=== PATIENT | male | born 1950 | race Caucasian/White ===

== ENCOUNTER → 2016-11-10 | Outpatient (CLI) | payer OTHER ==
[~2016-11-10] MED LIST: ALPR-411 PO; ASCO10003 PO; ATOR-22 PO; CHOL1000 PO; COEN1CAP7 PO; CYAN100020 PO; DICL1TAB5 PO; DICY10CA55 PO; IBUP-1050 PO; INTERFERON INJ; LEVO25TA PO; OXYC-57 PO; PRLSR20 PO; PYRI60TA2 PO; SULF800T23 PO; TAMS0.4C38 PO; VENL150C PO
--- NOTE | 2016-11-11 10:26 | DIAGNOSTIC IMAGING REPORT ---
ADDENDUM Addendum: Asymmetric FDG uptake within the right globe and right optic nerve. However, this favors normal physiologic uptake. There is diminished FDG uptake within the left orbit which may be due to post radiation changes. Electronically signed by: Hector Pierre M.D. 11/11/2016 10:36 AM Dictated Date/Time: 11/11/2016 10:26 AM ORIGINAL REPORT PET/CT, WHOLE BODY HISTORY: Melanoma. TECHNIQUE: PET/CT was performed from the skull vertex through the feet following the intravenous administration of 13.7 mCi of F18-FDG. Non-contrast CT imaging was performed over the same range without breath-hold for attenuation correction of PET images and anatomic correlation, but not for primary interpretation as it is not of standard diagnostic quality. CT DOSE: 896.18 mGycm COMPARISON: PET CT 06/18/2016. FINDINGS: HEAD AND NECK: No abnormal FDG uptake within the brain. FDG uptake along the left side of the neck has significantly improved in the interval. Soft tissue stranding along the left lateral neck favors postoperative change/scarring. This demonstrates minimal FDG uptake with an SUV max of 1. CHEST: No suspicious or FDG avid pulmonary nodules. Linear density right lower lobe favor subsegmental atelectasis. There are few subcentimeter mediastinal lymph nodes. Dominant AP window lymph node measures 9 mm. There are no enlarged hilar lymph nodes. However, there is mediastinal and bilateral hilar FDG uptake. The dominant AP window lymph node demonstrates an SUV max of 2.3. Right hilar lymph node demonstrates an SUV max of 3.2. This is new from the prior study. ABDOMEN/PELVIS: Below the diaphragm, tracer is distributed physiologically in the gastrointestinal and genitourinary tracts. There is no significant lymphadenopathy and no FDG-avid disease. Small fat-containing umbilical hernia. MUSCULOSKELETAL/LOWER EXTREMITIES: There is no FDG-avid or destructive bone lesion. IMPRESSION: 1. The FDG uptake within the left neck has significantly improved and essentially resolved in the interval. Minimal FDG uptake remaining likely represents resolving postoperative change. 2. Interval development of FDG avid mediastinal and bilateral hilar lymph nodes. The lymph nodes measure subcentimeter in short axis diameter. This may be due to prior inflammatory/infectious change. However, follow-up chest CT or PET/CT should be performed to ensure resolution and to exclude the possibility of developing metastatic disease. Electronically signed by: Hector Pierre M.D. 11/11/2016 10:24 AM Dictated Date/Time: 11/10/2016 1:48 PM
== END | disposition home or self-care (01) ==
LOC: C.PET 08:48
PROVIDERS: ATTEND Internal Medicine Hematology & Oncology
DX: C43.4 Malignant melanoma of scalp and neck (principal)

== ENCOUNTER → 2016-11-22 | Outpatient (CLI) | payer OTHER ==
[2016-11-22 12:32] LABS: HEMATOCRIT 35.6 % (42-52); MEAN CELL VOLUME 76.2 fL (80-100); MEAN CORPUSCULAR HEMOGLOBIN 26.3 pg (25-34); MEAN CORPUSCULAR HGB CONC 34.6 g/dl (32-36); MEAN PLATELET VOLUME 10.3 fL (7.4-10.4); PLATELET COUNT 107 K/uL (130-400); RED BLOOD COUNT 4.67 M/uL (4.7-6.1); WHITE BLOOD COUNT 1.68 K/uL (4.8-10.8)
[2016-11-22 12:37] LABS: COMPLETE YES; LYMPH ABS # 0.21 K/uL (1.2-3.4); LYMPHOCYTE % 12.3 %; META ABS # 0.02 K/uL (0-0); METAMYELOCYTE % 0.9 %; MYELOCYTE % 0.9 %; NEUTROPHILS % 66.6 %
[2016-11-22 13:25] LABS: FERRITIN 138.6 ng/ml (8.0-388.0); THYROID STIMULATING HORMONE 1.07 uIu/ml (0.300-4.500)
[2016-11-26 17:31] LABS: REFERENCE QUEST TEST REPORT
[2016-11-27 22:12] LABS: GLIADIN DEAMIDATED IgA AB 4 UNITS (<20); GLIADIN DEAMIDATED IgG AB 3 UNITS (<20); R. TYPHI IgG AB Not Detected (Not Detected); R. TYPHI IgM AB Not Detected (Not Detected); RMSF IgM AB Not Detected (Not Detected)
== END | disposition home or self-care (01) ==
LOC: C.LAB 10:59
PROVIDERS: ATTEND Family Medicine
DX: R53.83 Other fatigue (principal); M25.50 Pain in unspecified joint

== ENCOUNTER → 2017-02-02 | Outpatient (CLI) | payer OTHER ==
[~2017-02-02] MED LIST changes: +OPTIRAY 320 IV PRN; -OXYC-57 PO
--- NOTE | 2017-02-02 10:00 | DIAGNOSTIC IMAGING REPORT ---
CHEST CT WITH CONTRAST CT DOSE: 518.64 mGy.cm HISTORY: Melanoma. Abnormal PET/CT. Follow-up. TECHNIQUE: Multiaxial CT images of the chest were performed following the intravenous administration of contrast. COMPARISON: PET CT 11/10/2016. FINDINGS: No supraclavicular or axillary lymphadenopathy. Stable mediastinal lymph nodes. Dominant lymph node seen within the AP window measures 9 mm in short axis diameter. There are mildly enlarged bilateral hilar lymph nodes. Dominant left hilar lymph node measures 13 mm and the dominant right hilar lymph node measures 15 mm. normal caliber thoracic aorta. The central pulmonary arteries are patent. The heart is normal in size. No pleural or pericardial effusions. There is a 3 cm diverticulum at the second portion of the duodenum. The adrenal glands and spleen are unremarkable. There are few subcentimeter hypodense lesions within the liver. These measure up to 7 mm within the right hepatic lobe. These are too small to characterize. Patchy area of sclerosis within the left posterior sixth rib remains unchanged. This does not demonstrate abnormal FDG uptake on the prior study and is therefore likely benign. No pneumothorax. The central airways are patent. No suspicious nodules. A few linear densities at the lung bases favor subsegmental atelectasis. IMPRESSION: 1. Stable mediastinal lymph nodes which measure subcentimeter in short axis diameter. 2. Mild bilateral hilar lymphadenopathy. This is concerning for metastatic disease. 3. No suspicious pulmonary nodules. 4. A few subcentimeter hypodense lesions within the liver. These are too small to characterize. Electronically signed by: Hector Pierre M.D. 02/02/2017 9:58 AM Dictated Date/Time: 02/02/2017 9:48 AM
== END | disposition home or self-care (01) ==
LOC: C.CTS 09:28
PROVIDERS: ATTEND Internal Medicine Hematology & Oncology
DX: C43.4 Malignant melanoma of scalp and neck (principal); R59.0 Localized enlarged lymph nodes; K76.9 Liver disease, unspecified

== ENCOUNTER 2017-02-11 10:52 | Day surgery (SDC) | payer OTHER ==
[2017-02-09 08:28] VITALS: BMI 29.0
[~2017-02-11] VITALS: Ht 175.3 cm; Wt 91.8 kg
[~2017-02-11 10:52] MED LIST changes: -DICL1TAB5 PO; +LACTATED RINGER'S 1000ML 1,000 ML IV SCH; -OPTIRAY 320 IV PRN; -SULF800T23 PO
[2017-02-11 11:11] VITALS: BP 127/83; PULSE 82; TEMP 36.5; O2SAT 97; Ht 175.3 cm; Wt 91.8 kg
[2017-02-11] MEDS ORDERED: MIDAZOLAM HCL 1 MG/ML 2ML VIAL ONE (12:02)
[2017-02-11] MEDS ORDERED: FENTANYL CITRATE INJ 50 MCG/1 ML 2 ML VIAL ONE ×2 (12:03→14:49)
--- NOTE | 2017-02-11 13:07 | History & Physical Bridge Note ---
H&P Re-Evaluation Bridge Note: I have examined the patient, reviewed the History & Physical and in the interval since the performance of the History & Physical I have noted the following changes of clinical significance: No changes noted
--- NOTE | 2017-02-11 13:40 | Discharge Instructions ---
Discharge Instructions Date of Service Feb 11, 2017. Visit Reason for Visit: History Of Melanoma, Mediastinal Adenopathy Discharge Discharge Diagnosis / Problem: History Of Melanoma, Mediastinal Adenopathy Discharge Goals Goal(s): Learn about illness Activity Recommendations Activity Limitations: resume your previous activity (in 24 hours) Anesthesia . Post Anesthesia Instructions: If you have had General Anesthesia or IV Sedation: * Do not drive today. * Resume driving when surgeon permits. * Do not make important decisions or sign legal documents today. * Call surgeon for: 1. Temperature elevations greater than 101 degrees F. 2. Uncontrollable pain. 3. Excessive bleeding. 4. Persistent nausea and vomiting. 5. Medication intolerance (nausea, vomiting or rash). * For nausea and vomiting use only clear liquids such as: tea, soda, bouillon until nausea subsides, then gradually increase diet as tolerated. * If you have any concerns or questions, call your surgeon's office. If physician is unavailable and it is an emergency, call 911 or go to the nearest emergency room. . Instructions / Follow-Up Instructions / Follow-Up 1. You may cough up some blood. Call physician if excessive amount noted. 2. Keep your scheduled appointment with Dr. Duran on February 19, 2017 @ 9:45. Diet Recommendations Recommended Home Diet: resume previous diet Pending Studies Studies pending at discharge: no Medical Emergencies . Who to Call and When: Medical Emergencies: If at any time you feel your situation is an emergency, please call 911 immediately. . Non-Emergent Contact Non-Emergency issues call your: Surgeon Call Non-Emergent contact if: your pain is not controlled . . "Provider Documentation" section prepared by Alessandro Mckinnon. .
[2017-02-11] MEDS ORDERED: CLINDAMYCIN PHOS 150 MG/ML 2 ML VIAL IV ONE (14:00)
[2017-02-11] MEDS ORDERED: ONDANSETRON INJ 2 MG/ML 2 ML VIAL ONE (14:28)
[2017-02-11] MEDS ORDERED: LIDOCAINE HCL 2% 2 ML VIAL (20MG/ML) ONE ×2 (14:28→14:49)
[2017-02-11] MEDS ORDERED: LARYING-O-JET KIT (LTA) EXT ONE ×2 (14:28)
[2017-02-11] MEDS ORDERED: PHENYLEPHRINE HCL INJ 10 MG/ML VIAL ONE (14:28)
[2017-02-11] MEDS ORDERED: SUCCINYLCHOLINE CHLORIDE 20 MG/ML 10 ML VIAL IV ONE (14:28)
[2017-02-11] MEDS ORDERED: PROPOFOL IV EMULSION 10 MG/ML 20 ML VIAL IV ONE (14:28)
[2017-02-11] MEDS ORDERED: DEXAMETHASONE SOD INJ 4 MG/ML VIAL ONE (14:28)
[2017-02-11] MEDS: FENTANYL CITRATE INJ 50 MCG/1 ML 2 ML VIAL IV PRN ×2 (14:42→14:53)
[2017-02-11] MEDS ORDERED: ALBUTEROL 0.083% NEBU SOLN 3 ML VIAL INH STA (14:53)
[2017-02-11] MEDS ORDERED: ATROPINE SULFATE 0.1 MG/ML 5ML SYR IV PRN (15:00)
[2017-02-11] MEDS ORDERED: PROMETHAZINE HCL INJ 12.5 MG in SODIUM CHLORIDE 0.9% 50ML 50 ML IV PRN (15:00)
[2017-02-11] MEDS ORDERED: ONDANSETRON INJ 2 MG/ML 2 ML VIAL IV PRN (15:00)
[2017-02-11] MEDS ORDERED: LABETALOL HCL IV 5 MG/ML 20ML IV PRN (15:00)
[2017-02-11] MEDS ORDERED: NALOXONE HCL 0.4 MG/1 ML VIAL/CARP IV PRN (15:00)
[2017-02-11] MEDS ORDERED: EpHEDrine SULFATE INJ 50 MG/ML AMP IV PRN (15:00)
--- NOTE | 2017-02-11 15:09 | DIAGNOSTIC IMAGING REPORT ---
SINGLE VIEW CHEST CLINICAL HISTORY: Postprocedure examination. History of melanoma. FINDINGS: An AP, portable, upright chest radiograph is compared to study dated 06/06/2016 and correlated with chest CT dated 02/02/2017. The examination is degraded by portable technique and patient rotation. The heart is top normal for projection. The mediastinal contour is within normal limits. No airspace consolidation or pleural effusion is identified. No pneumothorax is seen. The bony thorax is grossly intact. IMPRESSION: 1. No pneumothorax is identified post procedure. 2. The lungs are clear. Electronically signed by: Rupert Webster M.D. 02/11/2017 3:07 PM Dictated Date/Time: 02/11/2017 3:05 PM
[2017-02-11 15:19] VITALS: PULSE 110; O2SAT 98
--- NOTE | 2017-02-11 15:23 | Anesthesiology Progress Note ---
Anesthesia Post Op Note Date & Time Feb 11, 2017 at 15:21 Vital Signs Pain Intensity: 0 Vital Signs Past 12 Hours Date Time Temp Pulse Resp B/P Pulse Ox O2 Delivery O2 Flow Rate FiO2 02/11/17 15:19 110 19 98 Mask 10.0 02/11/17 15:15 36.2 108 18 100/69 93 Nasal Cannula 2 02/11/17 15:05 107 15 94/57 99 Mask 10 02/11/17 14:55 110 23 114/74 99 Mask 10 02/11/17 14:45 116 16 116/74 99 Mask 10 02/11/17 14:37 36.0 124 16 125/67 99 Mask 10 02/11/17 11:11 36.5 82 18 127/83 97 Room Air Notes Mental Status: alert / awake / arousable, participated in evaluation Pt Amnestic to Procedure: Yes Nausea / Vomiting: adequately controlled Pain: adequately controlled Airway Patency, RR, SpO2: stable & adequate BP & HR: stable & adequate Hydration State: stable & adequate Anesthetic Complications: no major complications apparent
--- NOTE | 2017-02-11 15:25 | OPERATIVE REPORT ---
DATE OF OPERATION: 02/11/2017 PREOPERATIVE DIAGNOSIS: Hypermetabolic hilar and mediastinal adenopathy. POSTOPERATIVE DIAGNOSIS: Apparent granulomatous disease, mediastinal and hilar lymph nodes. PROCEDURE: Endobronchial ultrasound with biopsy. SURGEON: Dr. Duran. DETONATOR MAKER: Ector Foster, respiratory therapy. ANESTHESIA: General anesthesia, endotracheal intubation. INDICATION FOR PROCEDURE AND FINDINGS: Ector Kennedy is a very nice 66-year-old male who has had metastatic melanoma. He developed it on his scalp and was resected and recurred in his neck bilaterally. He underwent bilateral radical neck dissections and had the vast majority nodes involved. He underwent a PET scan and was found to have hypermetabolic activity in both hilar areas as well as the left peritracheal area inferiorly. I was asked to evaluate him and we set him up for an endobronchial ultrasound. On 02/11/2017 the patient underwent an uncomplicated endobronchial ultrasound with biopsy. The lymph nodes in the hilar area were a bit enlarged. I biopsied the left level 11 and right level 11 areas. I also biopsied the left level 4 areas. The bilateral hilar nodes came back as granulomas. We got good lymph node tissue and it did not appear we were dealing with any type of malignancy. He tolerated it well. PROCEDURE: The patient brought to the operating room, laid in supine position. He was rather difficult intubation, but an endotracheal tube was placed. After appropriate timeout had been called and antibiotics have been given, the endobronchial ultrasound scope was placed through the endotracheal tube through an adapter. Upon coming down I went merely to the left level 11 area. There were some lymph nodes out here at the bifurcation of the left upper and left lower lobe. This was the area which was hypermetabolic on PET scan. I biopsied these lymph nodes multiple times under ultrasound guidance in real time. I then pulled back and went to the right side and biopsied the right level 11 several times. I then went up and biopsied the left level 4 area. Both hilar areas had granulomatous disease with good lymph node tissue and no evidence of malignancy. I lavage both right and left side and then did washings. It is important to note that we did send tissue as well as washings for acid fast bacilli stained as well as fungal stains and cultures of both. I then slowly withdrew the endobronchial ultrasound scope. He tolerated it well. There was no bleeding. I attest to the content of the Intraoperative Record and any orders documented therein. Any exceptio ns are noted below.
[2017-02-11 15:50] VITALS: BP 91/62; PULSE 106; TEMP 36.9; O2SAT 96
[2017-02-11 16:11] VITALS: BP 94/61; PULSE 100; TEMP 36.8; O2SAT 92
[2017-02-11 16:44] VITALS: BP 106/73; PULSE 98; TEMP 36.9; O2SAT 92
[2017-04-15] MEDS ORDERED: SULF800T23 PO (09:14)
== END 2017-02-11 16:45 | disposition home or self-care (01) ==
LOC: C.ACU 10:52
PROVIDERS: ATTEND Surgery
DX: R59.0 Localized enlarged lymph nodes (principal); E03.9 Hypothyroidism, unspecified; I10 Essential (primary) hypertension; E78.5 Hyperlipidemia, unspecified; E66.9 Obesity, unspecified; Z85.820 Personal history of malignant melanoma of skin; Z90.89 Acquired absence of other organs; Z98.890 Other specified postprocedural states; Z80.7 Family history of other malignant neoplasms of lymphoid, hematopoietic and related tissues

== ENCOUNTER → 2017-04-13 | Outpatient (CLI) | payer OTHER ==
[~2017-04-13] MED LIST changes: -LACTATED RINGER'S 1000ML 1,000 ML IV SCH; +SULF800T23 PO
== END | disposition home or self-care (01) ==
LOC: C.LAB 12:19
PROVIDERS: ATTEND Urology
DX: N40.1 Benign prostatic hyperplasia with lower urinary tract symptoms (principal)

== ENCOUNTER → 2017-07-27 | Outpatient (CLI) | payer OTHER ==
[~2017-07-27] MED LIST changes: -SULF800T23 PO
--- NOTE | 2017-07-28 07:39 | DIAGNOSTIC IMAGING REPORT ---
PET/CT FULL BODY CLINICAL HISTORY: Melanoma. COMPARISON STUDY: PET CT November 10, 2016, chest CT February 02, 2017 and MRI of the brain June 19, 2016. FINDINGS: HEAD AND NECK: No cervical lymphadenopathy is present. There are postsurgical findings within the left neck. There is no abnormal FDG uptake within the neck. CHEST: There has been interval increase in FDG uptake within multiple mediastinal and bilateral hilar lymph nodes. The hilar lymph nodes are suboptimally assessed on this unenhanced exam. An index subcarinal shown on image 126 measures 7 mm in short axis diameter. This has slightly increased in size. This has an SUV max of 5.6. An AP window lymph node shown image 112 measures 7 mm. This has slightly increased in size since prior exam. SUV max of this node is 5.7. Right hilar lymph nodes have an SUV max of 5.2 on this exam. The SUV max for the right hilum previously measured 2.7. No suspicious pulmonary nodules are present. ABDOMEN AND PELVIS: There has been interval development of a mildly enlarged upper abdominal lymph nodes. Index portacaval lymph node shown image 167 measures 3 x 1 cm. This lymph node previously measured 2.5 x 1 cm. This node now has abnormal FDG uptake with an SUV max of 7.7. A few adjacent smaller lymph nodes have abnormal FDG uptake which reflects a new finding since prior examination. MUSCULOSKELETAL: No suspicious skeletal uptake is identified. LOWER EXTREMITIES: No suspicious FDG uptake is identified within either lower extremity. IMPRESSION: Significant increase in FDG uptake within nonenlarged and minimally enlarged mediastinal and bilateral hilar lymph nodes since PET/CT of April 10, 2017. Interval development of upper abdominal FDG avid lymphadenopathy. This lymphadenopathy is nonspecific but worrisome for progression of metastatic disease. Electronically signed by: Amari Bourne M.D. 07/28/2017 7:38 AM Dictated Date/Time: 07/27/2017 2:04 PM
== END | disposition home or self-care (01) ==
LOC: C.PET 09:53
PROVIDERS: ATTEND Internal Medicine Hematology & Oncology
DX: C43.4 Malignant melanoma of scalp and neck (principal); R59.0 Localized enlarged lymph nodes

== ENCOUNTER → 2018-02-15 | Outpatient (CLI) | payer OTHER ==
--- NOTE | 2018-02-15 14:07 | DIAGNOSTIC IMAGING REPORT ---
PET/CT FULL BODY CLINICAL HISTORY: Melanoma. COMPARISON STUDY: Full body PET/CT July 27, 2017. TECHNIQUE: A PET/CT was performed from the skull vertex through the feet following intravenous injection of 11.63 mCi of F18 FDG IV. Injection was performed at 8:26 AM and imaging began at 10:[address] was performed for attenuation correction purposes and anatomic localization. FINDINGS: Head and neck: On PET portion of this exam, there is a focus of moderate asymmetric radiotracer uptake within the periphery of the left cerebellar hemisphere that measures approximately 1.8 cm and has an SUV max of 13. This is new since previous exam of July 27, 2017. There is no cervical lymphadenopathy. There is no abnormal FDG uptake within the neck. There are postoperative findings within the left neck. The postoperative appearance is unchanged previous exams. Chest: The previously described mediastinal and bilateral hilar lymph nodes have decreased in size since exam of July 27, 2017. A nonenlarged subcarinal lymph node has an SUV max of 3.2. It previously measured 5.3 on exam of July 27, 2017. The SUV max for the left hilum is now 2.8. It previously measured 5.7. The SUV max of the right hilum is now 3.6. It previously measured 4.5. Lungs are suboptimally assessed on this exam due to respiratory motion but no suspicious pulmonary nodules are identified. Abdomen and pelvis: A previously described portacaval lymph node shown image 140 has not changed in size. It measures 3.3 x 1.1 cm. However, the FDG uptake within this node has diminished with an SUV max of 3.4. It previously measured 6.2. Diffuse increased splenic uptake is noted. This is nonspecific. The SUV max of the spleen is 7. There is colonic diverticulosis without evidence for acute diverticulitis. Musculoskeletal: No suspicious skeletal uptake is identified. Lower extremities: No abnormal FDG uptake is identified within the lower extremities. IMPRESSION: 1. Interval development of a focus of increased radiotracer uptake within the periphery of the left cerebellar hemisphere. This finding is suspicious for a metastasis. An MRI of the brain is recommended. 2. Interval decrease in FDG uptake within nonenlarged mediastinal, bilateral hilar and upper abdominal lymph nodes. Mild residual increased radiotracer uptake. The findings suggest a partial alysa treatment response. 3. Diffuse increased splenic uptake without focal lesion by CT. This may be treatment related and can be assessed on subsequent studies. Electronically signed by: Amari Bourne M.D. 02/15/2018 2:06 PM Dictated Date/Time: 02/15/2018 12:20 PM
== END | disposition home or self-care (01) ==
LOC: C.PET 07:40
PROVIDERS: ATTEND Internal Medicine Hematology & Oncology
DX: C43.4 Malignant melanoma of scalp and neck (principal); D71 Functional disorders of polymorphonuclear neutrophils

== ENCOUNTER → 2018-02-25 | Outpatient (CLI) | payer OTHER ==
[~2018-02-25] MED LIST changes: +GADAVIST IV PRN
--- NOTE | 2018-02-25 09:03 | DIAGNOSTIC IMAGING REPORT ---
BRAIN COMBO CLINICAL HISTORY: RECURRENT MELONOMA abnormal PET scan COMPARISON STUDY: PET 02/15/2018. MRI brain 06/19/2016 TECHNIQUE: Utilizing a 1.5 Sadie magnet and dedicated coil, multiplanar, multiecho imaging of the brain was performed pre and postcontrast administration. IV administration of 7.5 mL of Gadavist contrast was uneventful. FINDINGS: Diffusion-weighted images show several foci of increased signal throughout both cerebral hemispheres. This involves the right temporal lobe, right parietal lobe, right parietal apex, as well as several foci involving the left occipital and frontal lobe regions. There is narrowing focus of increased activity and/or signal are visualized at the left cerebellar hemisphere. These represent interval changes from the prior MRI study. Postcontrast images demonstrate multiple foci of enhancement including a dominant left millimeter enhancing nodule peripheral aspect left cerebellum. Several smaller foci are identified within the right as well as left cerebellar regions. There are multiple diffuse foci of postcontrast enhancement over the cerebral hemispheres bilaterally. These do not create a significant degree of reactive edema. There is a trace amount of vasogenic edema. The coronal FLAIR images demonstrate increased foci corresponding to the enhancing foci which aren't interval development from the prior study. Ventricular system remains midline. There is no midline deviation. IMPRESSION: 1. Interval development of extensive metastatic disease throughout the cerebellar as well as cerebral hemispheres. 2. Minimal localized vasogenic edema with no significant mass effect at the current time. The above report was generated using voice recognition software. It may contain grammatical, syntax or spelling errors. Electronically signed by: Eugenio Amanda M.D. 02/25/2018 9:01 AM Dictated Date/Time: 02/25/2018 8:55 AM
== END | disposition home or self-care (01) ==
LOC: C.MRI 07:42
PROVIDERS: ATTEND Internal Medicine Hematology & Oncology
DX: C43.4 Malignant melanoma of scalp and neck (principal); C79.31 Secondary malignant neoplasm of brain

== ENCOUNTER → 2018-05-25 | Outpatient (CLI) | payer OTHER ==
[~2018-05-25] MED LIST changes: -ATOR-22 PO; -GADAVIST IV PRN; -INTERFERON INJ; +METH5TAB4 PO; +NMN5 PO; +PROB1TAB16 PO; +RANI150T3 PO; -VENL150C PO; +VENL150C2 PO; +nystatin PO
[2018-05-25 14:29] VITALS: BP 132/84; PULSE 84; TEMP 36.8; O2SAT 94
--- NOTE | 2018-05-25 16:21 | Radiation Oncology Follow-Up ---
Radiation Oncology Follow-Up Date of Visit May 25, 2018. Reason For Visit Follow up post initiation of medication Radiation Completion Date 03/18/18 Diagnosis (1) Melanoma Stage: IV Permanent Comment: Treatment: Status post completion of whole brain radiation therapy March 18, 2018. He received 3000 cGy. Last Edited By: Angelica Bear on Mar 29, 2018 14:31 History of Present Illness Mr. Kennedy has a history of melanoma of the scalp initially resected in 2012 who then presented with a left cervical alysa recurrence. 06/06/2016 --- left neck dissection by Dr. Gomez --- A. LYMPH NODE, LEFT NECK, EXCISION: METASTATIC MALIGNANT MELANOMA IN ONE OF ONE LYMPH NODES (10/19). SEE COMMENT. B. PAROTID GLAND AND LYMPH NODES, LEFT NECK, PAROTIDECTOMY WITH RADICAL LEFT NECK DISSECTION: 1. METASTATIC MALIGNANT MELANOMA INVOLVING FORTY -FIVE OF FORTY-EIGHT LYMPH NODES (45/48). SEE COMMENT. 2. PAROTID GLAND WITH NO PATHOLOGIC ABNORMALITY. C. LYMPH NODE, LEFT SCALENE, EXCISION: METASTATIC MALIGNANT MELANOMA IN ONE OF ONE LYMPH NODES (10/19). 06/2016 to 08/2016 --- interferon therapy underneath supervision of Dr. Henrry Blunt 02/11/2017 --- mediastinal assessment via EBUS biopsy of multiple mediastinal lymph nodes --- negative for metastatic carcinoma/recurrent cancer. Consistent with granulomas. 02/15/2018 --- PET/CT --- IMPRESSION: 1. Interval development of a focus of increased radiotracer uptake within the periphery of the left cerebellar hemisphere. This finding is suspicious for a metastasis. An MRI of the brain is recommended. 2. Interval decrease in FDG uptake within nonenlarged mediastinal, bilateral hilar and upper abdominal lymph nodes. Mild residual increased radiotracer uptake. The findings suggest a partial alysa treatment response. 3. Diffuse increased splenic uptake without focal lesion by CT. This may be treatment related and can be assessed on subsequent studies. 02/25/2018 --- MRI of brain --- IMPRESSION: 1. Interval development of extensive metastatic disease throughout the cerebellar as well as cerebral hemispheres. 2. Minimal localized vasogenic edema with no significant mass effect at the current time. The patient is now being referred to us by Dr. Henrry Celeste for consideration of palliative external beam radiation therapy to the brain. Status post completion of whole brain radiation March 18, 2018. He received 3000 cGy. Interim History The patient had been seen on April 22, 2018. He has a complaint of difficulty with his short-term memory. He had difficulty with cognitive abilities. He had no issues with long-term memories. We reviewed the symptoms and started the him on Namenda. He had been given instructions to steadily increase and try to rate up on the medication. He unfortunately has forgotten on occasions to increase the medication. Currently he is taking 1 pill twice daily. He denies any side effects. He feels that the issues with short-term memory are currently stable. He continues to have issues with having difficulty with train of thought if he is interrupted. He does have a complaint of lightheadedness with standing. He has had this for a number of years. We did review his medication list and he is on Flomax. We discussed that this can be a side effect of Flomax. He was seen at [facility] and had a complete evaluation in April. MRI of the brain on May 07, 2018 showed around 40 intracranial metastasis are present. The largest is a dural based within the left cerebellar hemisphere measuring 1.5 x 1.3 cm. There is mild adjacent vasogenic edema around several of these lesions, but no significant mass-effect or midline shift. No large volume intracranial hemorrhage or extra-axial fluid collections present. There is no sign of acute infarct. The cranium and skull base are without worrisome findings. He is being seen again in 1 month. There was request of the previous MRI for comparison. He had a PET CT this was performed on May 10, 2018. There is discussion of starting Opdivo. He has recheck appointment in June. He plans to move to [place] in July or August. Allergies Coded Allergies: Chlorhexidine (Verified Allergy, Intermediate, RASH, 02/11/17) Food (Verified Allergy, Unknown, Berries, apples, and RAISINS-ANAPHYLAXIS , 02/11/17) NO KNOWN DRUG ALLERGIES (Verified Allergy, Unknown, NONE, 02/11/17) Peanut (Verified Allergy, Unknown, ANAPHYLAXIS, 02/11/17) Home Medications Scheduled Alprazolam (Xanax), 0.25 MG PO QPM Ascorbic Acid (Vitamin C), 1,000 MG PO QAM Cholecalciferol (Vitamin D3), 3,000 UNITS PO DAILY Coenzyme Q10 (Ubidecarenone) (Coq10), 200 MG PO QAM Cyanocobalamin (Vitamin B12), 1,000 MCG PO DAILY Dicyclomine Hcl (Bentyl), 10 MG PO PRN Levothyroxine Sodium (Synthroid), 25 MCG PO HS Memantine (Namenda), 5 MG PO BID Methylphenidate (Ritalin), 5 MG PO BID Omeprazole (Prilosec), 20 MG PO HS Probiotic Product (Probiotic), 1 TAB PO DAILY Pyridostigmine [place] (Mestinon), 60 MG PO TID Tamsulosin Hcl (Flomax), 0.4 MG PO HS Venlafaxine Hcl (Effexor Xr), 1 CAP PO HS Scheduled PRN Ibuprofen (Advil), 400 MG PO TID PRN for Moderate Pain Ranitidine Hcl (Zantac), 1 TAB PO BID PRN for Indigestion [nystatin], 1 CAP PO DAILY PRN for Documentation Review of Systems Gastrointestinal: Symptoms: Constipation GI Comments: Constipation manageable at home; Oral: Symptoms: No Problems Respiratory: Symptoms: SOB With Exertion Sputum Character: Neurologist feels SOB could be related to myasthenia gravis; Other Respiratory: SOB w/exertion at times- eval by Dr. Villegas for this; Urinary: Symptoms: WNL Skin: Symptoms: No Problems Physical Exam Vital Signs Date Time Temp Pulse Resp B/P (MAP) Pulse Ox O2 Delivery O2 Flow Rate FiO2 05/25/18 14:29 36.8 84 20 132/84 94 Fatigue: None General Appearance: no apparent distress Eyes: normal inspection, EOMI ENT: normal ENT inspection, hearing grossly normal Respiratory/Chest: lungs clear, no respiratory distress, no accessory muscle use Cardiovascular: regular rate, rhythm, no gallop, no murmur Neurologic/Psychiatric: no motor/sensory deficits, alert, normal mood/affect Skin: warm/dry Pain Management Patient Reports Pain: No Pain Location: None Patient Preferred Pain Scale: 0 - 10 Initial Pain Intensity: 0.0 Pain Management Plan He denies pain therefore requires no pain management. Laboratory Laboratory Results: were reviewed Pathology Pathology Results: were reviewed, and pertinent findings noted in HPI Imaging Imaging Studies: were reviewed, and pertinent findings noted below Imaging Comments Reviewed in the interim history. Assessment & Plan Plan: PET/CT information was reviewed. His records were reviewed and an MRI was performed at [facility] on May 07. He is returning there in 1 month and request was made for comparison to the MRIs that were performed here. He is going to continue on the Namenda. It is hoped that this will help with his short-term memory. Prescription has been given for 6 months. He can discuss continuation of the medication with the medical oncologist at [facility] ([facility] He is concerned about the lightheadedness with standing. We discussed that it may be related to his Flomax. He does have a follow-up appointment with Dr. Silverman before moving to [place]. I have him to review this with him. He may be changed to a different medication that would have less issues with the lightheadedness. Total Time In Follow-Up I spent 20 minutes speaking to the patient in performing examination. I spent 15 minutes reviewing information and completing this note. AK Copy To Ector Fierro M.D. (MEDICINE); Henrry Celeste MD; Naresh Espinoza M.D. ; Felix Silverman M.D.
== END | disposition home or self-care (01) ==
LOC: C.ONC 14:06
PROVIDERS: ATTEND Physician Assistant Medical
DX: Z08 Encounter for follow-up examination after completed treatment for malignant neoplasm (principal); Z92.3 Personal history of irradiation; Z85.820 Personal history of malignant melanoma of skin